=== PATIENT | female | born 1950 | race Caucasian/White ===

== ENCOUNTER 2023-09-27 12:04 | Emergency (ER) | payer MEDICARE, OTHER ==
[~2023-09-27] VITALS: Ht 162.6 cm; Wt 62.0 kg
[2023-09-27] MEDS ORDERED: LIDOCAINE-PRILOC5 GM (14:05)
[2023-09-27] MEDS ORDERED: LATANOPROST2.5 ML OPTH (14:05)
[2023-09-27 14:24] LABS: BASOPHILS 0.5 % (0-2); EOSINOPHILS 2.8 % (0-6); HEMATOCRIT 41.5 % (35.0-50.0); LYMPHOCYTES 29.8 % (24-44); MCH 32.5 (27-36); MCHC 33.6 g/dl (30-36); MCV 96.6 fl (81-99); MONOCYTES 10.2 % (0-12); NEUTROPHILS 56.7 % (39-80); PLATELET COUNT 277 K/uL (140-440); RDW 13.7 (10.5-15.0)
[2023-09-27 14:42] LABS: ALBUMIN 3.8 g/dL (3.4-5.0); ALBUMIN/GLOBULIN RATIO 1.12 (1.1-2.4); ANION GAP 12.3 (7-21); BILIRUBIN, TOTAL 0.3 ng/dL (0.2-1.0); BUN/CREATININE RATIO 44.77 (6.0-28.6); CALCIUM 9.2 mg/dL (8.5-10.1); CREATININE, SERUM 0.67 mg/dL (0.55-1.02); POTASSIUM 4.3 mmol/L (3.5-5.1); PROTEIN, TOTAL 7.2 g/dL (6.4-8.2)
[2023-09-27 15:23] VITALS: BP 154/71
== END 2023-09-27 15:26 | disposition home or self-care (01) ==
LOC: ED 12:04
PROVIDERS: Emergency Medicine
DX: M79.662 Pain in left lower leg (principal); Z88.0 Allergy status to penicillin; Z88.5 Allergy status to narcotic agent
CPT/HCPCS: 36415; 80053; 85025; 93971

== ENCOUNTER 2024-07-14 06:25 | Day surgery (SDC) | payer MEDICARE, OTHER ==
[~2024-07-14] VITALS: Ht 162.6 cm; Wt 58.2 kg
[~2024-07-14 06:25] MED LIST: ASPIRIN325 MG PO; LACTATED RINGER'S 1,000 ML IV SCH; LATANOPROST2.5 ML OPTH; LIDOCAINE-PRILOC5 GM
[2024-07-14] MEDS ORDERED: KETOROLAC TROMETHAMINE 30 MG/ML VIAL ONE ×2 (06:34→08:24)
[2024-07-14 06:44] VITALS: BP 177/85
[2024-07-14] MEDS ORDERED: CRANBERRY200 MG PO (06:49)
[2024-07-14] MEDS ORDERED: IRON18 M1 PO (06:49)
[2024-07-14] MEDS ORDERED: VITAMIN D31 ML PO (06:49)
[2024-07-14] MEDS ORDERED: IBLOOD GLUCOSE TEST STRIP 1 EA TEST VI PRN ×2 (07:00→09:15)
[2024-07-14] MEDS ORDERED: LIDOCAINE HCL 1% 5 ML SDV INJ ONE (07:00)
[2024-07-14] MEDS ORDERED: CEFAZOLIN SODIUM 2 GM/20 ML SYR IV SCH (07:00)
[2024-07-14] MEDS ORDERED: LIDOCAINE HCL 2% 5 ML SDV ONE (07:34)
[2024-07-14] MEDS ORDERED: fentaNYL citrate 100 MCG/2 ML VIAL ONE (07:34)
[2024-07-14] MEDS ORDERED: propofoL 200 MG/20 ML VIAL ONE (07:34)
[2024-07-14] MEDS ORDERED: KETOROLAC TROMETHAMINE 15 MG/ML VIAL IV PRN (08:15)
[2024-07-14] MEDS ORDERED: HYDROCODONE/ACETA 7.5/325 TAB PO PRN (08:15)
[2024-07-14] MEDS ORDERED: ondansetron HCL 4 MG/2 ML VIAL ONE (08:24)
[2024-07-14] MEDS ORDERED: DEXAMETHASONE SOD PHOS 4 MG/ML VIAL ONE (08:24)
[2024-07-14] MEDS ORDERED: ACETAMINOPHEN 1,000 MG/100 ML VIAL ONE (08:38)
[2024-07-14] MEDS ORDERED: HYDROCODON-ACE1 EA11 PO (08:52)
[2024-07-14] MEDS ORDERED: CELECOXIB200 MG PO (08:52)
[2024-07-14] MEDS ORDERED: fentaNYL citrate 50 MCG/ML SDV ONE (09:04)
[2024-07-14] MEDS ORDERED: ondansetron HCL 4 MG/2 ML VIAL IV PRN (09:15)
[2024-07-14] MEDS ORDERED: fentaNYL citrate 50 MCG/ML SDV IV PRN (09:15)
[2024-07-14] MEDS ORDERED: NALOXONE HCL 0.4 MG SYR IV PRN (09:15)
--- NOTE | 2024-07-14 09:15 | NUR ---
07/14/24 0915 Елена Campos 0851- PT ARRIVES TO PACU, SEMI YE POSITION. OPA IN PLACE, O2 AT 6L PER MASK, BREATHING EVEN AND NON LABORED. LR INFUSING TO LAC IV. ABD SOFT, NON DISTENDED. DRESSING IN PLACE TO LEFT KNEE, CDI, PULSES INTACT. ALL MONITORS IN PLACE. PT NON REACTIVE AT THIS TIME. 0857- PT WAKES ON OWN AND LIFTS HEAD, OPA REMOVED AT THIS TIME. MOVED TO ROOM AIR. PT REORIENTED TO TIME AND PLACE. DENIES NAUSEA, REPORTS 5/10 PAIN, TOLERABLE. 0901- ICE WATER PROVIDED, TOLERATING WELL. REQUESTS PAIN MEDICATION FOR INCREASING PAIN. 0906- PT MEDICATED WITH FENTANYL 25 MCG FOR 7/10 PAIN.
[2024-07-14 09:22] VITALS: BP 155/82
[2024-07-14] MEDS ORDERED: SEVOFLURANE 250 ML BTL INH ONE (09:28)
[2024-07-14 10:00] VITALS: BP 142/68
--- NOTE | 2024-07-14 10:47 | NUR ---
LE 0920 PT ARRIVED TO DAY SURGERY VIA STREACHER FROM PACU. REPORT TAKEN FROM MEEK Wick RN. PT AWAKE AND ORIENTED, BREATHING EQUAL AND UNLABORED. VITALS TAKEN. IV ASSESSED. WATER AT BEDSIDE, PUDDING AND CRACKERS AT BEDSIDE. PT REPORTS TOLERABLE 4/10 PAIN, PAIN PLAN DICUSSED. PT SPOUSE AT BEDSIDE. LE 0924 PAIN MEDICATION GIVEN PER EMAR. LE 0955 PT USED CALL LIGHT TO ALERT RN THAT PT NEEDS TO VOID. PT AMBULATED TO THE BATHROOM AND VOIDED 300 MLS OF CLEAR YELLOW URINE. PT ABLE TO AMBULATE BACK TO ROOM. LE 1005 PT HAS BEEN ABLE TO AMBULATE AND VOID, PT HAS TOLERATED PO FLUIDS AND SNACKS. PT REPORTS NO NAUSEA AND 3/10 TOLERABLE PAIN AT THIS TIME. IV DISCONTINUED FOR DISCAHRGE. DISCHARGE INFORMATION GONE OVER WITH PT AND SPOUSE, NO QUESTIONS AT THIS TIME. SPOUSE HAS DISCHARGE PACKET IN HAND. PT GETTING DRESSED WITH SPOUSE IN ROOM. LE 1020 PT DISCHARGED FROM DAY SURGERY VIA WHEELCHAIR TO FRONT OF HOSPITAL TO PT SPOUSE'S CAR. SPOUSE HAD DISCHARGE INFORMATION IN HAND.
[2024-07-14] MEDS ORDERED: CELECOXIB 200 MG CAP PO SCH (17:00)
--- NOTE | 2024-07-17 08:25 | OR ---
[facility] [address], [place] [address] Signed DATE OF OPERATION: 07/14/2024 SURGEON: Mitchell Ayala MD PREOPERATIVE DIAGNOSIS: Medial meniscus tear, left knee. POSTOPERATIVE DIAGNOSIS: Medial meniscus tear, left knee. PROCEDURE PERFORMED: Left knee arthroscopy with partial medial meniscectomy. [employer] OPERATOR: None. ANESTHESIA: General. BLOOD LOSS: Minimal. BRIEF HISTORY: Gail is a 73-year-old female with progressive worsening of pain and instability in her knee. MRI was consistent with the above. She had minimal arthritic changes on her x-rays. Risks and benefits of operative treatment discussed with her and she elected to proceed. Once consent was obtained, she was taken to the operating room after adequate anesthesia. She was placed on operating room table. The right leg was flexed, abducted, and externally rotated on a well-padded leg daily. The left was placed in well-padded proximal thigh and leg daily with no tourniquet. The leg was then prepped and draped in a standard sterile fashion. Portal sites were then injected with 0.25% Marcaine with epinephrine. Standard inferolateral and superolateral portals were established and scope was introduced in the knee. ARTHROSCOPIC FINDINGS: Significant synovitis was noted throughout the knee. The patellofemoral joint appeared to be intact with only grade 1 softening. Medial and lateral gutters were clear. ACL and PCL were intact. Lateral compartment was intact. 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 It was a complex tear extending from mid medial body Electronically Signed By: MITCHELL AYALA MD 07/17/24 0825 PATIENT NAME: GAIL ALEJANDRA OPERATIVE REPORT DATE OF : 52 REPORT #: [id number] PHYSICIAN: MITCHELL AYALA MD PCP: NARESH MITCHELL MD REPORT IS CONFIDENTIAL AND NOT TO BE RELEASED WITHOUT AUTHORIZATION [facility] [address] [facility] [place] [address] Signed posteriorly. DESCRIPTION OF OPERATION: Standard inferomedial portal was established after localization using a spinal needle. Straight and curved biters were then used to trim the meniscus tear back to a stable rim. This was then feathered out anteriorly and posteriorly. This was smoothed using shaver and all debris was evacuated. The scope was then withdrawn. Portals were closed with 3-0 nylon. The knee was injected with 60 mg of Toradol. The wounds were then dressed with Adaptic, ABD, and Kirk wrap. She tolerated the procedure well. All sponge, needle, and instrument counts were correct. Mitchell Ayala MD BA/NATHALYL /[id number] Copies: ~ Electronically Signed By: MITCHELL AYALA MD 07/17/24 0825 PATIENT NAME: GAIL ALEJANDRA OPERATIVE REPORT DATE OF : 52 REPORT #: [id number] PHYSICIAN: MITCHELL AYALA MD PCP: NARESH MITCHELL MD REPORT IS CONFIDENTIAL AND NOT TO BE RELEASED WITHOUT AUTHORIZATION
== END 2024-07-14 10:20 | disposition home or self-care (01) ==
LOC: DS 06:25
PROVIDERS: ATTEND Specialist
PROC: 0SBD4ZZ Excision of Left Knee Joint, Percutaneous Endoscopic Approach (ICD-10-PCS; principal; 2024-07-14 08:30)
DX: S83.232A Complex tear of medial meniscus, current injury, left knee, initial encounter (principal); X58.XXXA Exposure to other specified factors, initial encounter; M65.962 Unspecified synovitis and tenosynovitis, left lower leg; M94.28 Chondromalacia, other site; Z88.0 Allergy status to penicillin; Z88.5 Allergy status to narcotic agent; Z88.8 Allergy status to other drugs, medicaments and biological substances
CPT/HCPCS: 01400; A9270; J0131; J0690; J1100; J1885; J2003; J2405; J2704; J3010; J7121